=== PATIENT | female | born 1980 | race Caucasian/White ===

== ENCOUNTER 2017-03-26 08:05 | Day surgery (SDC) | payer MEDICAID ==
[~2017-03-26 08:05] MED LIST: ABILIFY5 MG PO; ACETAMINOPHEN325 M1 PO; ALAVERT10 MG; ALEVE220 MG PO; ALLEGRA180 MG; ALLEGRA30 MG; ALLERGY SHOTS IM; AMBIEN CR12.5 MG/BO PO; BACTRIM DS TABL1 TAB PO; BACTRIM DS1 TAB PO; BENTYL10 M1 PO; CARAFATE1 G2 PO; CIPRO; CIPRO250 MG PO; CLARINEX D PO; CLARINEX-D 11 BOTTLE PO; COLACE100 M1 PO; COLACE100 MG PO; CYCLOBENZAPRINE5 M1 PO; CYMBALTA60 MG; DAZIDOX10 MG PO; DYAZIDE 37.5-21 EACH PO; EFFEXOR75 MG; ELAVIL10 MG; ELAVIL75 MG; FLEXERIL10 MG PO; FUROSEMIDE40 M2 PO; KLOR-CON 1010 ME1 PO; LAMICTAL100 M1 PO; LAMICTAL100 M2 PO; LAMICTAL100 MG PO; LASIX40 M1 PO; LEVAQUIN750 MG PO; METHOCARBAMOL750 M1 PO; MIRALAX17 GM PO; NAPROSYN500 MG PO; NASACORT10 GM; NICODERM14 MG/PAT1 TD; NORCO 5/325 TAB1 TAB PO; OXYCODONE HCL E10 MG PO; OXYCODONE/APAP PO; PERCOCET 10/31 UDTAB PO; PERCOCET 5/3251 TAB PO; PRESTIQUE PO; PRILOSEC20 M1 PO; PRISTIQ ER100 MG PO; PRISTIQ100 MG PO; PRISTIQ50 MG PO; REXULTI2 MG PO; SUDAFED 12 HOU120 MG PO; WELLBUTRIN75 M1 PO; ZANTAC300 M3 PO; ZYPREXA5 MG PO; ZYRTEC1010 PO; [UNRECOGNIZED DRUG - OTHER]
[2017-03-26 09:15] LABS: INR 0.9 INR (0.9-1.1); PROTHROMBIN TIME 10.7 SECONDS (9.0-13.6)
[2017-03-26] MEDS ORDERED: RANITIDINE HCL300 M1 PO (09:21)
[2017-03-26] MEDS ORDERED: OMEPRAZOLE20 M3 PO (09:22)
[2017-03-26] MEDS ORDERED: [UNRECOGNIZED DRUG - OTHER] PO (09:28)
[2017-03-26] MEDS ORDERED: AZITHROMYCIN250 M1 PO (09:29)
[2017-03-26] MEDS ORDERED: NEURONTIN300 M1 PO (09:29)
[2017-03-26] MEDS ORDERED: LAMICTAL200 M2 PO (09:30)
[2017-03-26] MEDS ORDERED: ZOFRAN4 M2 PO (09:30)
[2017-03-26] MEDS ORDERED: SYMBICORT 160-1 PUFF INH (09:31)
[2017-03-26] MEDS ORDERED: XANAX1 M1 PO (09:31)
[2017-03-26] MEDS ORDERED: TIZANIDINE HCL4 M3 PO (09:33)
[2017-03-26] MEDS ORDERED: DICLOFENAC SODI75 M2 PO (09:34)
[2017-03-26] MEDS ORDERED: PERCOCET 10-321 EACH PO (09:35)
[2017-03-26] MEDS ORDERED: OXYCONTIN30 M1 PO (09:35)
[2017-03-26] MEDS ORDERED: LEVOCETIRIZINE D5 M1 PO (09:35)
[2017-03-26] MEDS ORDERED: BUTALB-ACETAMI1 EAC1 PO (09:36)
[2017-03-26] MEDS ORDERED: RELPAX40 M1 PO (09:37)
[2017-03-26] MEDS ORDERED: CHANTIX0.5 MG/TAB PO (09:37)
[2017-03-26] MEDS ORDERED: ADVAIR 25028 BLISTE1 PO (09:38)
[2017-03-26] MEDS ORDERED: GAMMAGARD IV (09:38)
[2017-03-26] MEDS ORDERED: SUDAFED30 M2 PO (09:39)
[2017-03-26] MEDS ORDERED: MACROBID 100 M100 M1 PO (09:39)
[2017-03-26] MEDS ORDERED: ADAPALENE TOP (09:40)
== END 2017-03-26 14:38 ==
LOC: SRG 08:05 → SHSB 08:08 → ORW 10:52 → PACU 11:24
PROVIDERS: Urology
PROC: 0TU Urinary System, Supplement (ICD-10-PCS; principal; 2017-03-26)
DX: N36.42 Intrinsic sphincter deficiency (ISD) (principal); R32 Unspecified urinary incontinence; R60.0 Localized edema; I10 Essential (primary) hypertension; G43.909 Migraine, unspecified, not intractable, without status migrainosus; J45.40 Moderate persistent asthma, uncomplicated; J44.9 Chronic obstructive pulmonary disease, unspecified; J32.9 Chronic sinusitis, unspecified; K21.9 Gastro-esophageal reflux disease without esophagitis; F17.210 Nicotine dependence, cigarettes, uncomplicated; Z79.2 Long term (current) use of antibiotics; Z79.899 Other long term (current) drug therapy; Z88.5 Allergy status to narcotic agent; Z87.440 Personal history of urinary (tract) infections; Z90.49 Acquired absence of other specified parts of digestive tract; Z90.710 Acquired absence of both cervix and uterus; Z98.1 Arthrodesis status; Z98.890 Other specified postprocedural states
CPT/HCPCS: J1170; J1956; J2250; L8606